=== PATIENT | male | born 1980 | race Two or more races ===

== ENCOUNTER 2017-06-20 11:36 | Emergency (ER) | payer SELFPAY ==
[2017-06-20 12:52] VITALS: BP 128/76; PULSE 63; TEMP 98; BMI 27.6
--- NOTE | 2017-06-20 14:06 | PDOC ---
History of Present Illness - General Chief Complaint: Rash Stated Complaint: WOUND INFECTION Time Seen by Provider: 06/20/17 12:52 History Source: Patient Exam Limitations: No Limitations - History of Present Illness Initial Comments: 06/20/17 14:40 MY CHIEF Complaint: redness and rash Medial left lower leg with clear discharge History of present illness: Patient is a 36-year-old male with no significant medical history here today complaining of developing a rash around area where he sutured in February 2017 after a tiolet cut his leg. Patient reports that the area healed well however patient developed a slightly pruritic rash tiny raised macules with central erythema and clear discharge 3 weeks ago. Patient reports taking Keflex for the last couple of days with minimal improvement. Denies Any fever. Patient reports that he was sutured in [facility] with a single layer suture. Pt. is up to date with tetanus vaccine. 06/20/17 14:49 Timing/Duration: getting worse Severity: moderate Associated Symptoms: reports: rash (left medial distal leg/ankle tiny macules, erythematous, approx4 cm x 6 cm with clear discharge centrally ) Past History - Past Medical History Allergies/Adverse Reactions: Allergies Allergy/AdvReac Type Severity Reaction Status Date / Time No Known Allergies Allergy Verified 06/20/17 12:43 Home Medications: Ambulatory Orders Sulfamethoxazole/Trimethoprim [Bactrim Ds -] 1 tab PO BID #19 tablet 06/20/17 - Suicide/Smoking/Psychosocial Hx Smoking History: Former smoker Have you smoked in the past 12 months: Yes Number of Cigarettes Smoked Daily: 2 If you are a former smoker, when did you quit?: 04/08 Information on smoking cessation initiated: Yes 'Breaking Loose' booklet given: 06/20/17 Hx Alcohol Use: No Drug/Substance Use Hx: No Substance Use Type: None Review of Systems - Review of Systems Able to Perform ROS?: Yes Constitutional: No: Symptoms Reported HEENTM: No: Symptoms Reported Respiratory: No: Symptoms reported Cardiac (ROS): No: Symptoms Reported ABD/GI: No: Symptoms Reported : No: Symptoms Reported Musculoskeletal: No: Symptoms Reported Integumentary: Yes: Rash (left distal medial leg/ankle approx 4 cm x 6 cm with surrounding tiny raised macules, with central erythema with clear fluid discharge) Neurological: No: Symptoms reported *Physical Exam - Vital Signs Last Vital Signs Temp Pulse Resp BP Pulse Ox 98 F 63 16 128/76 100 06/20/17 12:43 06/20/17 12:43 06/20/17 12:43 06/20/17 12:43 06/20/17 12:43 - Physical Exam General Appearance: Yes: Appropriately Dressed Respiratory/Chest: positive: Lungs Clear, Normal Breath Sounds. negative: Chest Tender, Respiratory Distress Cardiovascular: positive: Regular Rhythm, Regular Rate, S1, S2 Vascular Pulses: Doralis-Pedis (L): 4+ Integumentary: positive: Erythema (left medial distal leg/ankle approx 4 cmX6cm with surrounding tiny raised macules, non tender to touch ) Neurologic: positive: Alert, Normal Response, Respond to painful stimul (left lower leg ), Responsive. negative: Numbness, Sensory Deficit (left lower leg ) Procedures - Consent Consent obtained: From Patient - Additional Procedures Progress: 06/20/17 14:47 Cleansed wound on left lower leg with Betadine and normal saline 0.9% dried areas apply tiny amount of bacitracin ointment with Jenna Medical Decision Making - Medical Decision Making 06/20/17 14:44 Patient is a 36-year-old male with no significant medical history here today complaining of developing a rash around area where he sutured in February 2017 due to laceration from a toilet hitting him in the leg. Patient reports that the area healed well however patient developed a slightly pruritic rash tiny raised macules with central erythema and clear discharge 3 weeks ago. Patient reports taking Keflex for the last couple of days with minimal improvement. Denies Any fever. Patient reports that he was sutured in [facility] with a single layer suture. Pt. is up to date with tetanus vaccine. Left lower leg cellulitis with serous discharge r/o foreign body PLAN: continue keflex as previously ordered wound C & S will start pt. on bactrim DS to cover for possible MRSA bactrim DS 1 tab now than bid for 10 days follow up with primary at [facility] xray left ankle/foot old avulsion fx left medial malleous 06/20/17 14:48 *DC/Admit/Observation/Transfer Diagnosis at time of Disposition: Cellulitis and abscess of leg - Discharge Dispostion Disposition: HOME Condition at time of disposition: Stable - Prescriptions Prescriptions: Sulfamethoxazole/Trimethoprim [Bactrim Ds -] 1 tab PO BID #19 tablet - Patient Instructions Additional Instructions: Continue to take Keflex 3 times a day as you have been previously for a total of 10 days Follow up with a primary care provider at [facility] at [phone] Return to emergency room if redness gets worse or discharge from wound gets worse or any fever Cleanse wound twice daily with antibacterial soap and water pat dry and apply a tiny amount of triple antibiotic ointment that have let air out at night Patient Voiced understanding of discharge instructions and all questions were answered Thank you for choosing [facility] emergency room for your medical needs today
[2017-06-20] MEDS ORDERED: SULFAMETHOXAZOLE/TRIMETHOPRIM 800MG/160MG D.S. TABLET PO ONE (14:37)
[2017-06-20] MEDS ORDERED: SULFAMETHOXAZOLE/TRIMETHOPRIM 800MG/160MG D.S. TABLET ONE (14:42)
== END 2017-06-20 14:56 | disposition home or self-care (01) ==
LOC: JER 11:36 → JERFT 11:36
DX: L03.116 Cellulitis of left lower limb (principal); S81.812D Laceration without foreign body, left lower leg, subsequent encounter; W22.8XXD Striking against or struck by other objects, subsequent encounter
CPT/HCPCS: 73610-TC-LT; 87070; 87205; 99281-25